=== PATIENT | female | born 1990 | race Asian ===

== ENCOUNTER 2018-04-10 16:15 | Inpatient (IN) | payer BC ==
[2018-04-10 17:56] LABS: ABS Basophils 0.1 10^3/ul (0-0.2); ABS Eosinophils 0 10^3/ul (0-0.6); ABS Lymphocytes 1.2 10^3/ul (1.0-4.8); ABS Monocytes 0.6 10^3/ul (0-0.8); ABS Neutrophils 5.7 10^3/ul (1.5-7.7); ABS Nucleated RBC 0 10^3/ul; Eosinophil % 0.5 % (0-6); Hematocrit 37 % (35-47); Hemoglobin 12.3 g/dl (12.0-16.0); Lymphocyte % 15.9 % (25-47); Mean Corpuscular HGB Conc 33 g/dl (31-36); Mean Corpuscular Hemoglobin 30 pg (27-31); Mean Corpuscular Volume 91 fL (80-97); Mean Platelet Volume 10.6 fL (7.4-10.4); Nucleated Red Blood Cells % 0.1; Platelet Count 145 10^3/ul (150-450); Red Blood Count 4.09 10^6/ul (4.00-5.40); Red Cell Distribution Width 15 % (10.5-15); White Blood Count 7.6 10^3/ul (3.5-10.8)
--- NOTE | 2018-04-10 21:08 | HP ---
General Information - Reason for Visit ROM @3pm. Minimal cramping - General Information Maternal Age: 27 Grav: 1 Para: 0 SAB: 0 IEA: 0 Estimated Due Date: 04/17/18 Determined By: LMP Maternal Blood Type and Rh: A Positive - Results this Serology/RPR Result: Non-Reactive Rubella Result: Immune HBsAg Result: Negative HIV Result: Negative GBS Culture Result: Negative Past Medical History Pertinent Past Medical History: Non-Contributory Pertinent Past Surgical History: None Pertinent Family History: Non-Contributory - Antepartal Records Antepartal Records: Reviewed, Uncomplicated Review of Systems Constitutional: Comfortable CV Complaint: No Respiratory: Shortness of Breath: No Gastrointestinal: No Nausea/Vomiting, Normal Bowel Movement Genitourinary: Leaking Fluid, Spotting Musculoskeletal: No Complaint Neurological: No Headache Movement: Normal Exam Allergies/Adverse Reactions: Allergies No Known Allergies Allergy (Verified 04/10/18 16:40) Lab Values - Entire Visit: Laboratory Tests 04/10/18 04/10/18 04/10/18 16:40 17:45 17:45 WBC 7.6 RBC 4.09 Hgb 12.3 Hct 37 MCV 91 MCH 30 MCHC 33 RDW 15 Plt Count 145 L MPV 10.6 H Neut % (Auto) 74.8 Lymph % (Auto) 15.9 L [place] % (Auto) 7.9 H Eos % (Auto) 0.5 Baso % (Auto) 0.9 Absolute Neuts (auto) 5.7 Absolute Lymphs (auto) 1.2 Absolute Monos (auto) 0.6 Absolute Eos (auto) 0 Absolute Basos (auto) 0.1 Absolute Nucleated RBC 0 Nucleated RBC % 0.1 Vag Amniotic Fld Detect Positive Blood Type A Positive Antibody Screen Negative - Measurements Height: 5 ft 1 in Weight: 138 lb Weight in lbs: 138.028965 Body Mass Index (BMI): 26.0 Pre- Weight: 104 lb Weight Gained This : 34 lbs and 0 ozs - Exam Breast: Breast Exam Deferred Extremities: No Edema Heart: Normal Rhythm/Heart Sounds HEENT: No Significant Findings - Abdominal Exam Abdomen Exam: Non-Tender - Ultrasound/Biophysical Profile Ultrasound Status: Not Done Targeted Exam Findings Cervical Exam: 2cm Effacement: 90% Station: -2 Presenting Part: Vertex Membrane Status: SROM Amniotic Fluid Evaluation: Gross Rupture, Positive ROM Plus EFM Findings - External Monitor Findings Baseline Heart Rate: 150 External Monitor Findings: Accelerations Present, No Pattern of Variable or Late Decelerations, Variability Moderate, Baseline Stable Contractions: Irregular Assessment/Plan - Assessment @39.1wks with ROM, not active labor yet. Prefers to wait a bit before starting pitocin. - Obstetrical Risk Factors Obstetrical Risk Factors: Gestational Diabetes - Plan Plan: Observe, Admit - Anticipate Vaginal Delivery - Date/Time of Admission Date of Admission: 04/10/18 Time of Admission: 18:00
[2018-04-10] MEDS ORDERED: Promethazine INJ(RESTRICTED)* 25 MG/ML 1 ML VIAL IV PRN (23:42)
[2018-04-10] MEDS ORDERED: Nalbuphine* 10 MG/ML 1 ML VIAL IV PRN (23:42)
[2018-04-11] MEDS ORDERED: Oxytocin in LR* 20 UNITS/1,000 ML BAG IVPB SCH ×2 (04:00→08:52)
[2018-04-11] MEDS ORDERED: OBEPIDURAL* 250 ML EPIDURAL ONE (11:00)
[2018-04-11] MEDS ORDERED: Famotidine TAB* 20 MG PO PRN (12:09)
[2018-04-11] MEDS ORDERED: Phenylephrine IV* 40 MCG/ML 10 ML SYRINGE IV PUSH PRN ×2 (12:09)
[2018-04-11] MEDS ORDERED: Sodium Citrate/Citric Acid* 15 ML UDC PO PRN (12:09)
[2018-04-11] MEDS ORDERED: OBEPIDURAL* 250 ML EPIDURAL SCH (13:00)
[2018-04-12] MEDS ORDERED: Sodium Citrate/Citric Acid* 15 ML UDC ONE (00:27)
[2018-04-12] MEDS ORDERED: ceFOXitin 2 GM IVPREMIX* 2 GM/50 ML BAG ONE (00:28)
[2018-04-12] MEDS ORDERED: ceFOXitin 2 GM IVPREMIX* 2 GM/50 ML BAG IVPB ONE (00:34)
[2018-04-12] MEDS ORDERED: Chloroprocaine 3%* 20 ML VIAL ONE (00:44)
[2018-04-12] MEDS ORDERED: Famotidine IV* 10 MG/ML 2 ML (20 mg) ONE (01:15)
[2018-04-12] MEDS ORDERED: OXYTOCIN* 10 UNITS/ML 1 ML VIAL ONE (01:15)
[2018-04-12] MEDS ORDERED: Lidocaine 2% PF * 5 ML VIAL ONE ×2 (01:39→02:18)
[2018-04-12] MEDS ORDERED: Morphine PF AMP (0.5MG/ML)* 5 MG/10 ML AMP ONE (01:39)
[2018-04-12] MEDS ORDERED: Midazolam* 1 MG/ML 2 ML VIAL (2 MG) ONE (02:15)
[2018-04-12] MEDS ORDERED: Succinylcholine* 20 MG/ML 10 ML VIAL ONE (02:18)
[2018-04-12] MEDS ORDERED: Propofol* 10 MG/ML 20 ML BTL IV PUSH ONE (02:18)
[2018-04-12] MEDS ORDERED: Bupivacaine-MPF SPINAL* 7.5 MG/ML - 2ML AMP ONE (02:25)
[2018-04-12] MEDS ORDERED: Dexamethasone IV* 4 MG/ML 1 ML (4 MG) ONE (02:29)
[2018-04-12] MEDS ORDERED: Ondansetron INJ* 2 MG/ML VIAL ONE (02:29)
[2018-04-12] MEDS ORDERED: EPHEDrine (Pressors)* 50 MG/ML VIAL ONE (03:04)
[2018-04-12] MEDS ORDERED: oxyCODONE/Acetamin 5/325 MG* TAB PO PRN ×5 (03:08→17:51)
[2018-04-12] MEDS ORDERED: Acetaminophen TAB* 325 MG PO PRN (03:08)
[2018-04-12] MEDS ORDERED: Dibucaine 1% 28.35 GM TUBE PR PRN (03:08)
[2018-04-12] MEDS ORDERED: Witch Hazel PAD* JAR TOPICAL PRN (03:08)
[2018-04-12] MEDS ORDERED: Ketorolac INJ* 30 MG/ML 1 ML VIAL IV PUSH SCH (03:15)
[2018-04-12] MEDS ORDERED: Naloxone* 0.4 MG/ML 1 ML VIAL IV PRN ×2 (03:24→03:28)
[2018-04-12] MEDS ORDERED: fentaNYL* 50 MCG/ML 2 ML VIAL (100 MCG VIAL) IV PRN (03:24)
[2018-04-12] MEDS ORDERED: DiMENhydriNATE IV* 50 MG/ML VIAL IV PUSH PRN (03:28)
[2018-04-12] MEDS ORDERED: Ondansetron INJ* 2 MG/ML VIAL IV PRN (03:28)
[2018-04-12] MEDS ORDERED: PROCHLORPERAZINE INJ 5 MG/ML 2 ML VIAL IV PRN (03:28)
[2018-04-12] MEDS ORDERED: Nalbuphine* 10 MG/ML 1 ML VIAL IV PRN (03:28)
[2018-04-12] MEDS ORDERED: Scopolamine 1.5 mg* PATCH TRANSDERM PRN (03:28)
[2018-04-12] MEDS ORDERED: diPHENhydraMINE IV* 50 MG/ML 1 ml VIAL (BENADRYL) IV SCH (04:00)
[2018-04-12] MEDS ORDERED: Ketorolac INJ* 30 MG/ML 1 ML VIAL IV SCH (04:00)
[2018-04-12] MEDS ORDERED: Lidocaine 1% MPF wEPI 200,000* 30 ML SDV ONE (06:04)
[2018-04-12] MEDS: Simethicone TAB* 80 MG TAB.CHEW PO SCH ×3 (08:01→17:22)
[2018-04-12] MEDS: Acetaminophen TAB* 325 MG PO SCH ×4 (08:01→20:22)
[2018-04-12] MEDS: Docusate CAP* 100 MG PO SCH ×2 (09:53→14:01)
[2018-04-12] MEDS: Ketorolac INJ* 30 MG/ML 1 ML VIAL IV SCH ×2 (14:02→20:20)
--- NOTE | 2018-04-13 00:17 | OP ---
DATE OF OPERATION: 04/12/18 - ROOM #101 DATE OF : 88 SURGEON: Tremayne Acosta M.D. [employer] FOOD: Terrence Powell CNM ANESTHESIOLOGIST: Dr. Arambula. ANESTHESIA: Epidural converted to spinal, converted to general anesthesia. PRE-OP DIAGNOSIS: A 39 plus 2 weeks gestation with arrest of descent. POST-OP DIAGNOSIS: A 39 plus 2 weeks gestation with arrest of descent. OPERATIVE PROCEDURE: Primary low transverse section. ESTIMATED BLOOD LOSS: 800 mL. URINE OUTPUT: 300 mL. IV FLUIDS: 2800 mL lactated Ringer's. MATERIALS TO LAB: Cord blood. INDICATIONS: This patient is a 27-year-old, 1, para 0, who presented with spontaneous rupture of membranes. She initially declined induction, but then started receiving Pitocin to augment her contractions. She made slow progress through labor to completely dilated. However, there had been minimal descent of the head for the last several hours of labor. The patient pushed for 30 to 40 minutes, again with no additional descent of the head. Considering this, we discussed the situation and considering the infant was suspected to be fairly large. The patient desired to discontinue and proceed with the section. She was extensively counseled for the surgery and consent was signed. FINDINGS: Normal appearing uterus, fallopian tubes, and ovaries. Delivery was productive of a 9 pounds 0 ounce male infant with Apgars of 9 and 9. Time of delivery was 0213. COMPLICATIONS: Problems with anesthesia. DESCRIPTION OF PROCEDURE: The risks, benefits, and alternatives were described to the patient and informed consent was obtained. The patient was taken to the operating room with IV running where her epidural was dosed and initially thought to be effective. After draping, testing the skin caused pain. After we waited and there was no improvement, the decision was made to sit the patient up for a new spinal. Once this was placed, she was laid down again. Again, she experienced pain with testing of the skin, but less than previously. About 10cc of 1% lidocaine with epi was injected along the planned incision site, but even this did not seem to resolve her sensation. At that point, we proceeded to general anesthesia. This was induced, and immediately a Pfannenstiel skin incision was made with a scalpel and this was carried down to the underlying fascia sharply. The fascia was then scored in the midline with the scalpel. The incision was extended using De La Cruz scissors. The rectus muscles were dissected off the rectus fascia using blunt and sharp dissection. The rectus muscles were in the midline bluntly. The peritoneum was also entered bluntly. A bladder blade was placed. A low transverse uterine incision was made with the scalpel. This was carried down to the amniotic cavity which was productive of clear fluid. The incision was extended with blunt traction. The head was elevated to the level of the incision without difficulty and delivered through the incision. With fundal pressure, the shoulders and body delivered without difficulty. The infant had excellent tone and cried immediately on delivery. The cord was doubly clamped and cut. The infant was then handed to the awaiting crewman armoured personnel carrier [id number]. Cord blood was collected. The placenta then delivered with manual extraction. The uterus was then exteriorized and cleared of all clots and debris. The uterine incision was reapproximated using 0 Vicryl in a running-locked fashion. A second layer of imbricating sutures of 0 Vicryl was also placed with good hemostasis. The posterior cul-de-sac was irrigated with saline. The uterus was then returned to the abdomen, and the incision was reinspected and noted to be hemostatic. The peritoneum was closed with 3-0 Vicryl in a running fashion. The fascia was closed with 0 Vicryl in a running fashion. Subcutaneous tissues were irrigated and made hemostatic with the Bovie. The skin was then closed with 4-0 Monocryl in a subcuticular stitch. Mastisol and Steri-Strips were placed over the incision which was then covered with a sterile bandage. The patient tolerated the procedure well. Sponge, lap, and needle counts were correct x2. [id number]/[facility] #: [id number] [facility]
[2018-04-13] MEDS: Ibuprofen TAB* 600 MG PO PRN ×3 (03:05→18:04)
[2018-04-13] MEDS ORDERED: Ketorolac INJ* 30 MG/ML 1 ML VIAL IV PUSH SCH (06:00)
[2018-04-13 06:40] LABS: ABS Basophils 0 10^3/ul (0-0.2); ABS Eosinophils 0.1 10^3/ul (0-0.6); ABS Lymphocytes 1.2 10^3/ul (1.0-4.8); ABS Monocytes 0.7 10^3/ul (0-0.8); ABS Neutrophils 9.5 10^3/ul (1.5-7.7); ABS Nucleated RBC 0 10^3/ul; Eosinophil % 0.8 % (0-6); Hematocrit 29 % (35-47); Hemoglobin 9.6 g/dl (12.0-16.0); Lymphocyte % 10.6 % (25-47); Mean Corpuscular HGB Conc 33 g/dl (31-36); Mean Corpuscular Hemoglobin 30 pg (27-31); Mean Corpuscular Volume 92 fL (80-97); Mean Platelet Volume 9.9 fL (7.4-10.4); Nucleated Red Blood Cells % 0.1; Platelet Count 116 10^3/ul (150-450); Red Blood Count 3.17 10^6/ul (4.00-5.40); Red Cell Distribution Width 16 % (10.5-15); White Blood Count 11.5 10^3/ul (3.5-10.8)
[2018-04-13] MEDS: Ferrous Gluconate TAB* 324 MG TAB PO SCH ×2 (08:42→21:22)
[2018-04-13] MEDS: Docusate CAP* 100 MG PO SCH ×4 (08:42→21:22)
[2018-04-13] MEDS: Simethicone TAB* 80 MG TAB.CHEW PO SCH ×5 (08:43→21:22)
[2018-04-13] MEDS: oxyCODONE/Acetamin 5/325 MG* TAB PO PRN ×2 (12:31→21:22)
--- NOTE | 2018-04-13 17:31 | PTEDU ---
Patient Name: JOEL FOUNTAIN JOEL FOUNTAIN selected video: Never Ever Shake a Baby to view on 04/13/2018 at 5:29:56 PM from [email or web address]
--- NOTE | 2018-04-13 17:40 | PTEDU ---
Patient Name: JOEL FOUNTAIN JOEL FOUNTAIN selected video: BBOB: Nurturing Your Gorgeous &Growing Baby by to view o n 04/13/2018 at 5:39:12 PM from [email or web address]
[2018-04-14] MEDS: Docusate CAP* 100 MG PO SCH ×3 (08:17→21:04)
[2018-04-14] MEDS: oxyCODONE/Acetamin 5/325 MG* TAB PO PRN (08:17)
[2018-04-14] MEDS: Simethicone TAB* 80 MG TAB.CHEW PO SCH ×4 (08:17→21:04)
[2018-04-14] MEDS: Ferrous Gluconate TAB* 324 MG TAB PO SCH ×2 (08:17→21:05)
[2018-04-14] MEDS ORDERED: Gentamicin IVPREMIX 80 MG/80 ML BAG IV SCH (17:00)
[2018-04-14] MEDS: Acetaminophen TAB* 325 MG PO PRN (17:01)
[2018-04-14 17:24] LABS: ABS Basophils 0.1 10^3/ul (0-0.2); ABS Eosinophils 0.1 10^3/ul (0-0.6); ABS Monocytes 0.6 10^3/ul (0-0.8); ABS Neutrophils 9.5 10^3/ul (1.5-7.7); ABS Nucleated RBC 0 10^3/ul; Hematocrit 30 % (35-47); Hemoglobin 9.7 g/dl (12.0-16.0); Mean Corpuscular HGB Conc 33 g/dl (31-36); Mean Corpuscular Hemoglobin 30 pg (27-31); Mean Corpuscular Volume 91 fL (80-97); Mean Platelet Volume 9.1 fL (7.4-10.4); Nucleated Red Blood Cells % 0.1; Platelet Count 189 10^3/ul (150-450); Red Blood Count 3.26 10^6/ul (4.00-5.40); Red Cell Distribution Width 15 % (10.5-15); White Blood Count 11.4 10^3/ul (3.5-10.8)
[2018-04-14 17:54] LABS: EGFR Non-African American 121.4 (>60)
[2018-04-14] MEDS: Clindamycin 900 MG/D5W BAG(*) 900 MG/50 ML BAG IVPB SCH (18:02)
[2018-04-14] MEDS: Gentamicin ADULT (*) 80 MG in NS 0.9% 100 ML* 100 ML IVPB SCH (18:49)
[2018-04-15] MEDS ORDERED: NS 0.9% 100 ML* 0 ML ONE (01:49)
[2018-04-15] MEDS: Clindamycin 900 MG/D5W BAG(*) 900 MG/50 ML BAG IVPB SCH ×3 (01:59→18:08)
[2018-04-15] MEDS: Gentamicin ADULT (*) 80 MG in NS 0.9% 100 ML* 100 ML IVPB SCH ×3 (03:23→18:42)
[2018-04-15] MEDS ORDERED: Scopolamine PATCH Remove* 1 NOTE MISC PATCH OFF PRN (03:31)
[2018-04-15] MEDS: oxyCODONE/Acetamin 5/325 MG* TAB PO PRN (06:35)
[2018-04-15] MEDS: Ibuprofen TAB* 600 MG PO PRN (10:08)
[2018-04-15] MEDS: Ferrous Gluconate TAB* 324 MG TAB PO SCH (10:08)
[2018-04-15] MEDS: Docusate CAP* 100 MG PO SCH ×2 (10:08→21:05)
[2018-04-15] MEDS: Simethicone TAB* 80 MG TAB.CHEW PO SCH ×3 (10:08→21:10)
--- NOTE | 2018-04-15 18:00 | PTEDU ---
Patient Name: JOEL FOUNTAIN JOEL FOUNTAIN selected video: BBOB: Nurturing Your Gorgeous &Growing Baby by to view o n 04/15/2018 at 6:00:04 PM from [email or web address]
[2018-04-15] MEDS: Acetaminophen TAB* 325 MG PO PRN (18:05)
--- NOTE | 2018-04-15 18:30 | PTEDU ---
Patient Name: JOEL FOUNTAIN JOEL FOUNTAIN selected video: BBOB: Bonding Through Massage to view on 04/15/2018 at 6:29:55 PM from [email or web address]
--- NOTE | 2018-04-15 18:38 | PTEDU ---
Patient Name: JOEL FOUNTAIN JOEL FOUNTAIN selected video: Follow Me Mum: The Bernabe to Successful to view on 04/15/20 18 at 6:38:15 PM [email or web address]
--- NOTE | 2018-04-15 19:05 | PTEDU ---
Patient Name: JOEL FOUNTAIN FOUNTAINBROOKSJoseSTEVEN selected video: Asthma in Children to view on 04/15/2018 at 7:04:12 PM from [email or web address]
--- NOTE | 2018-04-15 19:15 | PTEDU ---
Patient Name: JOEL FOUNTAIN JOEL FOUNTAIN selected video: Type 1 Diabetes in Children and Teens to view on 04/15/2018 at 7:15:30 PM from [email or web address]
[2018-04-16] MEDS: Acetaminophen TAB* 325 MG PO PRN ×3 (04:15→15:45)
[2018-04-16 08:40] VITALS: BP 105/74
[2018-04-16] MEDS: Ferrous Gluconate TAB* 324 MG TAB PO SCH ×2 (09:35→09:36)
[2018-04-16] MEDS: Docusate CAP* 100 MG PO SCH ×2 (09:35→15:45)
[2018-04-16] MEDS: Simethicone TAB* 80 MG TAB.CHEW PO SCH ×2 (09:35→15:45)
== END 2018-04-16 16:04 | disposition home or self-care (01) | DRG 540 ==
LOC: MCHOBOUT 16:15 → MCHOB 17:32
PROVIDERS: ADMIT Obstetrics & Gynecology; ATTEND Obstetrics & Gynecology
PROC: 10907ZC Drainage of Amniotic Fluid, Therapeutic from Products of Conception, Via Natural or Artificial Opening (ICD-10-PCS; 2018-04-12)
PROC: 10D00Z1 Extraction of Products of Conception, Low, Open Approach (ICD-10-PCS; 2018-04-12)
PROC: 4A1HXCZ Monitoring of Products of Conception, Cardiac Rate, External Approach (ICD-10-PCS; principal; 2018-04-12 01:04)
DX: O24.420 Gestational diabetes mellitus in childbirth, diet controlled (principal); O86.12 Endometritis following delivery; K21.9 Gastro-esophageal reflux disease without esophagitis; O99.62 Diseases of the digestive system complicating childbirth; Z3A.39 39 weeks gestation of pregnancy; Z37.0 Single live birth; O62.1 Secondary uterine inertia; O99.72 Diseases of the skin and subcutaneous tissue complicating childbirth; R21 Rash and other nonspecific skin eruption; O90.81 Anemia of the puerperium
CPT/HCPCS: 36415; 80053; 84112; 85025; 86850; 86900; 86901; 87040; 87086; A9270-GY; J0330; J0694; J1100; J1580; J1885; J2001; J2250; J2400; J2405; J2590; J2704